=== PATIENT | male | born 1965 | race Caucasian/White ===

== ENCOUNTER 2018-09-26 14:12 | Emergency (ER) | payer BC ==
[~2018-09-26] VITALS: Ht 182.9 cm; Wt 108.0 kg
[2018-09-26 14:15] VITALS: BP 159/90; Ht 182.9 cm; Wt 108.0 kg
== END 2018-09-26 15:51 | disposition home or self-care (01) ==
LOC: ED 14:12
DX: S29.011A Strain of muscle and tendon of front wall of thorax, initial encounter (principal); I10 Essential (primary) hypertension; I25.2 Old myocardial infarction; Z95.5 Presence of coronary angioplasty implant and graft; X58.XXXA Exposure to other specified factors, initial encounter; Y93.89 Activity, other specified; Y92.89 Other specified places as the place of occurrence of the external cause; Y99.8 Other external cause status
CPT/HCPCS: J1885